=== PATIENT | female | born 1950 | race Caucasian/White ===

== ENCOUNTER 2019-09-08 14:15 | Emergency (ER) | payer MEDICARE, MEDICAID ==
[2019-09-08] MEDS ORDERED: Sodium Chloride 0.9% 10 ML Syringe FLUSH PRN (14:21)
[2019-09-08] MEDS ORDERED: Famotidine 20 MG/2 ML SDV IVPUSH ONE (14:21)
--- NOTE | 2019-09-08 14:21 | EDM.PDOC ---
ED HPI GENERAL MEDICAL PROBLEM - General Chief Complaint: Neuro Symptoms/Deficits Stated Complaint: stroke code Time Seen by Provider: 09/08/19 14:15 Source of Information: Reports: EMS, Old Records ([facility] chart/EMR.), Other (Harriett Rome, [place]-STAKE SETTER at the [facility], and limited clinic notes). Denies: Patient, EMS Notes Reviewed (Not available at time of dictation) History Limitations: Reports: Altered Mental Status - History of Present Illness INITIAL COMMENTS - FREE TEXT/NARRATIVE: The patient was brought to the emergency room via ambulance with prop sawyer accompaniment with a stroke code called in the field per recommendations from our nursing staff. Emergency staff members were available in the emergency room at time of the patient's arrival. She is an extremely poor historian secondary to her probable CVA and current nonverbal status. The patient has apparently not been heard from for at least the last 3 days and was found by her neighbor shortly prior to transfer to this facility for further evaluation. The patient was lying between the couch and table on the living room floor. Per paramedics there was some urine and stool incontinence on the scene. They were unable to obtain IV access with blood pressures in the 140s/60s prior to transfer to this facility. Accu-Chek by the paramedics on the scene normal at 88 mg percent. Onset: Unknown/Unsure Onset Date: 09/05/19 Duration: Day(s): (As above) - Related Data Allergies Allergy/AdvReac Type Severity Reaction Status Date / Time Sulfa (Sulfonamide Allergy UNKNOWN Verified 06/06/19 10:09 Antibiotics) Past Medical History HEENT History: Reports: Allergic Rhinitis Cardiovascular History: Reports: High Cholesterol Musculoskeletal History: Reports: Osteoarthritis, Osteoporosis Psychiatric History: Reports: Anxiety, Depression - Infectious Disease History Infectious Disease History: Reports: Chicken Pox, Shingles (Right thoracic region on 07/20/2019.) - Past Surgical History HEENT Surgical History: Reports: Adenoidectomy, Tonsillectomy GI Surgical History: Reports: Appendectomy Female Surgical History: Reports: Tubal Ligation - Past Imaging History Past Imaging History: Reports: DEXA Scan (02/09/2019.), Mammogram (Mammogram on 07/14/2019.) Social & Family History - Family History Cardiac: Reports: Hypertension, Other (See Below) Other Cardiac Family History: Mother with hypertension. Respiratory: Reports: COPD, Other (See Below) Other Respiratory Family Hisory: Father with COPD Psychiatric: Reports: Anxiety, Depression, Other (See Below) Other Psychiatric Family History: Mother with anxiety depression disorder - Tobacco Use Smoking Status *Q: Current Every Day Smoker Tobacco Use Within Last Twelve Months: Cigarettes Years of Tobacco use: 40 Packs/Tins Daily: 1 - Caffeine Use Caffeine Use: Reports: Coffee - Alcohol Use Alcohol Use History: Yes Days Per Week of Alcohol Use: 7 Number of Drinks Per Day: 1 Total Drinks Per Week: 7 - Living Situation & Occupation Living situation: Reports: Alone ED ROS GENERAL - Review of Systems Review Of Systems: Unable To Obtain Reason Not Obtained: Patient is nonverbal ED EXAM, NEURO - Physical Exam Exam: See Below Exam Limited By: Altered Mental Status General Appearance: No Apparent Distress, Lethargic (Mildly) Eye Exam: Bilateral Eye: EOMI, Normal Fundi, Normal Inspection (No nystagmus), PERRL Ears: Normal External Exam, Normal Canal, Hearing Grossly Normal, Normal TMs Nose: Normal Inspection, Normal Mucosa, No Blood Throat/Mouth: Normal Inspection, Normal Lips, Normal Teeth, Normal Gums, Normal Voice, No Airway Compromise. No: Normal Oropharynx (Mildly dry oral mucosa), Dysphagia, Perioral Cyanosis Head Exam: Atraumatic, Normocephalic. No: Facial Swelling, Facial Tenderness, Sinus Tenderness Neck: Supple, Non-Tender, Full Range of Motion, Carotid Bruit (Mild bilateral carotid bruits). No: Lymphadenopathy (L), Lymphadenopathy (R), Thyromegaly Respiratory/Chest: No Respiratory Distress, No Accessory Muscle Use, Chest Non- Tender, Rales (Bilateral basilar rales- mild). No: Pleural Rub, Retractions Cardiovascular: Normal Peripheral Pulses, Regular Rate, Rhythm, No Edema, No Gallop, No JVD, No Murmur, No Rub. No: Gallop/S3, Gallop/S4, Friction Rub GI/Abdominal: Normal Bowel Sounds, Soft, Non-Tender, No Organomegaly, No Distention, No Abnormal Bruit, No Mass, Pelvis Stable. No: Guarding (Female) Exam: Deferred Rectal (Female) Exam: Deferred Neurological: Alert, Babinski (Positive right-sided), Difficulty Walking, Other (Severe right-sided hemiparesis mostly in the right arm hand with rightfacial hemiparesis and mostly nonverbal status with severe aphasia) Back Exam: Normal Inspection, Full Range of Motion. No: CVA Tenderness (L), CVA Tenderness (R), Muscle Spasm Extremities: Normal Inspection, Normal Range of Motion, Non-Tender, No Pedal Edema, Normal Capillary Refill, Other (Mildly decreased turgor) Psychiatric: Flat Affect Skin Exam: Warm, Dry, Intact, Normal Color, Erythema (Moderate 8 cm diameter area of +1 erythema in the right pelvic/hip region with no decubitus). No: Diaphoretic, Wound/Incision EKG INTERPRETATION EKG Date: 09/08/19 Time: 14:27 Rhythm: NSR Rate (Beats/Min): 74 [place]: Normal (Neutral) P-Wave: Enlarged (Mild diffuse biphasic P waves) QRS: Normal (0.09 seconds) ST-T: Normal QT: Normal OK/PQ Interval: 0.17 seconds Comparison: NA - No Prior EKG EKG Interpretation Comments: 1. No acute ischemic changes 2. Atrial enlargement-left Course - Vital Signs Last Recorded V/S: Last Vital Signs Temp 36.8 C 09/08/19 14:20 Pulse 77 09/08/19 14:50 Resp 18 09/08/19 14:50 BP 140/66 09/08/19 14:50 Pulse Ox 96 09/08/19 14:50 Vital Signs - 24 hr 09/08/19 09/08/19 09/08/19 14:20 14:35 14:50 Temperature [ 36.8 C Temporal] Pulse, 76 74 77 Peripheral [ Pulse Oximetry] Respiratory 16 20 18 Rate Blood Pressure 135/56 L 146/61 H 140/66 [Left Upper Arm ] O2 Sat by Pulse 98 94 L 96 Oximetry - Orders/Labs/Meds Orders: Active Orders 24 hr Category Date Time Status Cardiac Monitoring [RC] STAT Care 09/08/19 14:21 Active EKG Documentation Completion [RC] ASDIRECTED Care 09/08/19 14:21 Active NIH Stroke Scale [RC] ASDIRECTED Care 09/08/19 14:21 Active Oxygen Therapy, ED [RC] PRN Care 09/08/19 14:21 Active Peripheral IV Care [RC] . DIRECTED Care 09/08/19 14:21 Active Pulse Oximetry [RC] CONTINUOUS Care 09/08/19 14:21 Active Up With Assistance [RC] ASDIRECTED Care 09/08/19 14:21 Active Vital Signs [RC] PFP Care 09/08/19 14:21 Active Nothing per Oral Now Diet [DIET] Diet 09/08/19 Breakfast Active Chest 1V Frontal [CR] Stat Exams 09/08/19 14:21 Ordered Head wo Cont [CT] Stat Exams 09/08/19 14:15 Taken PROLACTIN [REF] Stat Lab 09/08/19 14:21 Ordered UA W/MICROSCOPIC [URIN] Stat Lab 09/08/19 14:21 Ordered Lactated Ringers [Ringers, Lactated] 1,000 ml Med 09/08/19 15:01 Ordered IV .BOLUS Sodium Chloride 0.9% [Saline Flush] Med 09/08/19 14:21 Active 10 ml FLUSH ASDIRECTED PRN Obtain Past Medical Record [OM.PC] Stat Oth 09/08/19 14:21 Active Peripheral IV Insertion Adult [OM.PC] Stat Oth 09/08/19 14:21 Ordered Resuscitation Status Stat Resus Stat 09/08/19 14:21 Ordered Medication Orders Lactated Ringer's (Ringers, Lactated) 1,000 mls @ 999 mls/hr IV .BOLUS ONE Stop: 09/08/19 16:01 Last Admin: 09/08/19 15:12 Dose: 999 mls/hr Sodium Chloride (Saline Flush) 10 ml FLUSH ASDIRECTED PRN PRN Reason: Keep Vein Open Labs: Laboratory Tests 09/08/19 09/08/19 09/08/19 Range/Units 14:20 14:20 14:20 WBC 14.5 H (4.0-10.2) K/uL RBC 4.78 (3.77-5.09) M/uL Hgb 15.8 H (11.7-15.5) g/dL Hct 45.3 (34.0-46.0) % MCV 94.8 (84.0-98.0) fL MCH 33.1 (28.2-33.3) pg MCHC 34.9 (31.7-36.0) g/dL RDW 12.9 (11.2-14.1) % Plt Count 292 (150-350) K/uL Neut % (Auto) 72.5 (45.0-80.0) % Lymph % (Auto) 21.0 (10.0-50.0) % [place] % (Auto) 6.1 (2.0-14.0) % Eos % (Auto) 0.3 (0.0-5.0) % Baso % (Auto) 0.1 (0.0-2.0) % Neut # (Auto) 10.49 H (1.40-7.00) K/uL Lymph # (Auto) 3.05 (0.50-3.50) K/uL [place] # (Auto) 0.88 (0.00-1.00) K/uL Eos # (Auto) 0.05 (0.00-0.50) K/uL Baso # (Auto) 0.02 (0.00-0.20) K/uL PT 10.4 (9.5-12.0) SEC INR 1.0 APTT 31.5 H (21.0-31.3) SEC D-Dimer, Quantitative 222 (0-400) ng/mL Sodium (136-145) mmol/L Potassium (3.5-5.1) mmol/L Chloride (98-107) mmol/L Carbon Dioxide (21.0-32.0) mmol/L BUN (7-18) mg/dL Creatinine (0.51-1.17) mg/dL Est Cr Clr Drug Dosing Estimated GFR (MDRD) mL/min Glucose (74-106) mg/dL Lactic Acid (0.4-2.0) mmol/L Uric Acid (2.6-7.2) mg/dL Calcium (8.5-10.1) mg/dL Magnesium (1.8-2.4) mg/dL Total Bilirubin (0.2-1.0) mg/dL AST (15-37) U/L ALT (12-78) U/L Alkaline Phosphatase (46-116) IU/L Creatine Kinase (26-308) U/L Creatine Kinase Index (0.0-2.5) % CK-MB (CK-2) (0.00-3.60) ng/mL Troponin I (0.000-0.056) ng/mL NT-Pro-B Natriuret Pep (0-125) pg/mL Total Protein (6.4-8.2) g/dL Albumin (3.4-5.0) g/dL TSH, Ultra Sensitive (0.358-3.740) mIU/mL 09/08/19 09/08/19 Range/Units 14:20 14:20 WBC (4.0-10.2) K/uL RBC (3.77-5.09) M/uL Hgb (11.7-15.5) g/dL Hct (34.0-46.0) % MCV (84.0-98.0) fL MCH (28.2-33.3) pg MCHC (31.7-36.0) g/dL RDW (11.2-14.1) % Plt Count (150-350) K/uL Neut % (Auto) (45.0-80.0) % Lymph % (Auto) (10.0-50.0) % [place] % (Auto) (2.0-14.0) % Eos % (Auto) (0.0-5.0) % Baso % (Auto) (0.0-2.0) % Neut # (Auto) (1.40-7.00) K/uL Lymph # (Auto) (0.50-3.50) K/uL [place] # (Auto) (0.00-1.00) K/uL Eos # (Auto) (0.00-0.50) K/uL Baso # (Auto) (0.00-0.20) K/uL PT (9.5-12.0) SEC INR APTT (21.0-31.3) SEC D-Dimer, Quantitative (0-400) ng/mL Sodium 139 (136-145) mmol/L Potassium 4.2 (3.5-5.1) mmol/L Chloride 104 (98-107) mmol/L Carbon Dioxide 23.7 (21.0-32.0) mmol/L BUN 19 H (7-18) mg/dL Creatinine 0.69 (0.51-1.17) mg/dL Est Cr Clr Drug Dosing TNP Estimated GFR (MDRD) > 60 mL/min Glucose 105 (74-106) mg/dL Lactic Acid 1.6 (0.4-2.0) mmol/L Uric Acid 5.8 (2.6-7.2) mg/dL Calcium 9.4 (8.5-10.1) mg/dL Magnesium 2.0 (1.8-2.4) mg/dL Total Bilirubin 0.5 (0.2-1.0) mg/dL AST 25 (15-37) U/L ALT 24 (12-78) U/L Alkaline Phosphatase 91 (46-116) IU/L Creatine Kinase 341 H (26-308) U/L Creatine Kinase Index 0.5 (0.0-2.5) % CK-MB (CK-2) 1.80 (0.00-3.60) ng/mL Troponin I 0.000 (0.000-0.056) ng/mL NT-Pro-B Natriuret Pep 38 (0-125) pg/mL Total Protein 7.9 (6.4-8.2) g/dL Albumin 3.8 (3.4-5.0) g/dL TSH, Ultra Sensitive 1.569 (0.358-3.740) mIU/mL Meds: Medications Generic Name Dose Route Start Last Admin Trade Name Freq PRN Reason Stop Dose Admin Lactated Ringer's 1,000 mls @ 999 mls/hr 09/08/19 15:01 09/08/19 15:12 Ringers, Lactated IV 09/08/19 16:01 999 mls/hr .BOLUS ONE Administration Sodium Chloride 10 ml 09/08/19 14:21 Saline Flush FLUSH ASDIRECTED PRN Keep Vein Open Discontinued Medications Generic Name Dose Route Start Last Admin Trade Name Freq PRN Reason Stop Dose Admin Aspirin 300 mg 09/08/19 15:01 09/08/19 15:20 Aspirin RECTAL 09/08/19 15:02 300 mg ONETIME ONE Administration Famotidine 40 mg 09/08/19 14:21 09/08/19 14:52 Pepcid IVPUSH 09/08/19 14:22 40 mg ONETIME ONE Administration - Radiology Interpretation Free Text/Narrative:: environmental monitoring specialist shows normal sinus rhythm in the 70s with no ectopy or arrhythmia. Chest x-ray, portable, shows an overall poor inspiratory film to moderate COPD changes with probable pulmonary hypertension and/or mild centralized CHF. No pneumothorax or pulmonary infiltrates. Moderate prominence of the proximal aortic arch and superior mediastinum. Telephone consultation at 14:50 hours with the radiology department at [facility] with preliminary verbal report of a noncontrast CT scan of the head with final report received in the emergency room. Note calcified embolic lesion in the left middle cerebral artery Ultane and an CT Results Date: 09/08/19 CT Results Time: 14:50 Departure - Departure Time of Disposition: 15:42 Disposition: DC/Tfer to Acute Hospital 02 Condition: Serious Clinical Impression: Cerebrovascular accident (CVA), Dehydration, Osteoarthritis, Hyperlipidemia, Mixed anxiety depressive disorder - Discharge Information Referrals: Harriett Rome, STAKE SETTER [Primary Care Provider] - Forms: ED Department Discharge, Interfacility Transfer EMTALA Sepsis Event Note - Focused Exam Vital Signs: Vital Signs Temp Pulse Resp BP Pulse Ox 09/08/19 14:50 77 18 140/66 96 09/08/19 14:35 74 20 146/61 H 94 L 09/08/19 14:20 36.8 C 76 16 135/56 L 98 Date Exam was Performed: 09/08/19 Time Exam was Performed: 15:51 - Problem List & Annotations (1) Cerebrovascular accident (CVA) SNOMED Code(s): 577586538 Code(s): I63.9 - CEREBRAL INFARCTION, UNSPECIFIED Status: Acute Priority : High Onset Date: Unknown Annotation/Comment:: Large left CVA as above with significant right-sided hemiparesis and aphasia. Mostly nonverbal, however she does follow commands. Stroke code was called as above. Telephone consultation at 15:[address] Eastman, neurologist at [facility] in [place], who does the patient for further evaluation and treatment, however he is requesting that the patient be initially seen in their emergency room as a stroke code. He did agree to contact their ER physicians for me. Note initiation of IV fluids for dehydration with additional rectal aspirin given as per standard protocol. Ambulance transfer with prop sawyer accompaniment with stable vital signs and neurological exam at time of transfer. Telephone consultation with the patient's daughter, Ana, who lives in [place], both early and at the end of the patient's emergency room care. Cellular telephone number [phone]. Per the patient's daughter last contact with the patient was on 09/04/2019 at 19:40 hours with a text message. Her neighbor, Dre, on the patient today, last contacted the patient in the afternoon on 09/05, also in a text message. Per the patient's daughter she is a full code at this time with appropriate intervention acceptable depending on her clinical course. Mild leukocytosis likely secondary to stress reaction with patient being afebrile. NIH score of 22 at time of patient's arrival. Qualifiers: CVA mechanism: embolism Precerebral and cerebral artery: middle cerebral artery Laterality of affected vessel: left Qualified Code(s): I63.412 - Cerebral infarction due to embolism of left middle cerebral artery (2) Dehydration SNOMED Code(s): 66630574 Code(s): E86.0 - DEHYDRATION Status: Acute Priority: High Onset Date: ~ 09/05/19 Annotation/Comment:: IV fluids initiated as above. Note secondary CPK elevation with continued IV hydration recommended. No direct evidence of significant rhabdomyolysis. (3) Hyperlipidemia SNOMED Code(s): 57369554 Code(s): E78.5 - HYPERLIPIDEMIA, UNSPECIFIED Status: Chronic Priority: Medium Annotation/Comment:: She has been noncompliant with her diet and statin therapy likely secondary to her anxiety depression disorder. Qualifiers: Hyperlipidemia type: mixed hyperlipidemia Qualified Code(s): E78.2 - Mixed hyperlipidemia (4) Mixed anxiety depressive disorder SNOMED Code(s): 736518853 Code(s): F41.8 - OTHER SPECIFIED ANXIETY DISORDERS Status: Chronic Priority: High Annotation/Comment:: Her emotional status has been under poor control during recent weeks per history from her regular provider, PEGGY Sheriff at the [facility]. She been noncompliant with her medication and been sitting on the couch the majority of the day. Continue to observe closely by accepting providers. (5) Osteoarthritis SNOMED Code(s): 216783747 Code(s): M19.90 - UNSPECIFIED OSTEOARTHRITIS, UNSPECIFIED SITE Status: Chronic Priority: Medium Annotation/Comment:: No evidence of significant injury from her CVA as above. Qualifiers: Osteoarthritis location: multiple joints Osteoarthritis type: primary Qualified Code(s): M15.0 - Primary generalized (osteo)arthritis - Problem List Review Problem List Initiated/Reviewed/Updated: Yes - My Orders Last 24 Hours: My Active Orders 09/08/19 14:15 Head wo Cont [CT] Stat 09/08/19 14:21 Cardiac Monitoring [RC] STAT EKG Documentation Completion [RC] ASDIRECTED NIH Stroke Scale [RC] ASDIRECTED Oxygen Therapy, ED [RC] PRN Peripheral IV Care [RC] . DIRECTED Pulse Oximetry [RC] CONTINUOUS Up With Assistance [RC] ASDIRECTED Vital Signs [RC] PFP Chest 1V Frontal [CR] Stat PROLACTIN [REF] Stat UA W/MICROSCOPIC [URIN] Stat Sodium Chloride 0.9% [Saline Flush] 10 ml FLUSH ASDIRECTED PRN Obtain Past Medical Record [OM.PC] Stat Peripheral IV Insertion Adult [OM.PC] Stat Resuscitation Status Stat 09/08/19 15:01 Lactated Ringers [Ringers, Lactated] 1,000 ml IV .BOLUS 09/08/19 Breakfast Nothing per Oral Now Diet [DIET] - Assessment/Plan Last 24 Hours: My Active Orders 09/08/19 14:15 Head wo Cont [CT] Stat 09/08/19 14:21 Cardiac Monitoring [RC] STAT EKG Documentation Completion [RC] ASDIRECTED NIH Stroke Scale [RC] ASDIRECTED Oxygen Therapy, ED [RC] PRN Peripheral IV Care [RC] . DIRECTED Pulse Oximetry [RC] CONTINUOUS Up With Assistance [RC] ASDIRECTED Vital Signs [RC] PFP Chest 1V Frontal [CR] Stat PROLACTIN [REF] Stat UA W/MICROSCOPIC [URIN] Stat Sodium Chloride 0.9% [Saline Flush] 10 ml FLUSH ASDIRECTED PRN Obtain Past Medical Record [OM.PC] Stat Peripheral IV Insertion Adult [OM.PC] Stat Resuscitation Status Stat 09/08/19 15:01 Lactated Ringers [Ringers, Lactated] 1,000 ml IV .BOLUS 09/08/19 Breakfast Nothing per Oral Now Diet [DIET] Assessment:: As above. Plan: As above. Extensive precautions were given to the patient and her daughter, who are in agreement with the treatment plan. Ambulance transfer with prop sawyer accompaniment as above.
[2019-09-08 14:57] LABS: CHLORIDE,CL 104 mmol/L (98-107); SODIUM,NA 139 mmol/L (136-145)
[2019-09-08] MEDS ORDERED: Lactated Ringers 1,000 ML IV ONE (15:01)
[2019-09-08] MEDS ORDERED: Aspirin 300 MG Supp RECTAL ONE (15:01)
== END 2019-09-08 15:50 ==
LOC: SUPCPDRO 14:15 → LL.ED 14:15
DX: I63.412 Cerebral infarction due to embolism of left middle cerebral artery (principal); R47.01 Aphasia; G81.91 Hemiplegia, unspecified affecting right dominant side; R40.2412 Glasgow coma scale score 13-15, at arrival to emergency department; R29.720 NIHSS score 20; E86.0 Dehydration; E78.5 Hyperlipidemia, unspecified; F41.8 Other specified anxiety disorders; M15.0 Primary generalized (osteo)arthritis; F17.210 Nicotine dependence, cigarettes, uncomplicated; Z88.2 Allergy status to sulfonamides
CPT/HCPCS: 36415; 70450; 71045; 80053; 82550; 82553; 83605; 83735; 83880; 84146; 84443; 84484; 84550; 85025; 85379; 85610; 85730; 93005; 96361; 96374; 99285; A9270; J3490; J7120